=== PATIENT | female | born 1985 | race African-American/Black ===

== ENCOUNTER 2019-11-23 08:21 | Emergency (ER) | payer OTHER ==
[~2019-11-23] VITALS: Ht 170.2 cm; Wt 74.8 kg
[2019-11-23 08:21] VITALS: BP 130/83
[~2019-11-23 08:21] MED LIST: ABILIFY MAINTE300 MG IM; ABILIFY15 MG PO; DILAUDID 2 MG TA2 MG PO; FLONASE 0.05%50 MCG NASAL; IRON325 PO; LITHIUM CARBON300 M7 PO; NOHOMEMEDICATIONS; SEROQUEL 50 MG50 MG PO; TESSALON PERLE100 MG PO; VENTOLIN HFA 1818 GM INH; VITAMIN D1000 UNI1 PO; ZOFRAN ODT4 MG PO
== END 2019-11-23 08:48 | disposition home or self-care (01) ==
LOC: ER 08:21
DX: S63.592A Other specified sprain of left wrist, initial encounter (principal); G43.909 Migraine, unspecified, not intractable, without status migrainosus; F31.9 Bipolar disorder, unspecified; F20.9 Schizophrenia, unspecified; F17.210 Nicotine dependence, cigarettes, uncomplicated; X50.9XXA Other and unspecified overexertion or strenuous movements or postures, initial encounter; Y93.89 Activity, other specified; Y92.89 Other specified places as the place of occurrence of the external cause; Y99.0 Civilian activity done for income or pay

== ENCOUNTER 2020-01-30 08:32 | Emergency (ER) | payer OTHER ==
[~2020-01-30] VITALS: Ht 170.2 cm; Wt 77.1 kg
[2020-01-30 09:48] VITALS: BP 151/74
== END 2020-01-30 09:48 | disposition home or self-care (01) ==
LOC: ER 08:32
DX: N93.8 Other specified abnormal uterine and vaginal bleeding (principal); F17.210 Nicotine dependence, cigarettes, uncomplicated; G43.909 Migraine, unspecified, not intractable, without status migrainosus; R11.0 Nausea; F31.9 Bipolar disorder, unspecified; F20.9 Schizophrenia, unspecified; Z79.899 Other long term (current) drug therapy